=== PATIENT | female | born 1990 | race Caucasian/White ===

== ENCOUNTER 2017-10-16 23:52 | Observation (INO) ==
[2017-10-17] MEDS ORDERED: Dexamethasone Inj 20 MG/5 ML Vial IM ONE (00:21)
--- NOTE | 2017-10-17 00:32 | ED ---
HPI General Chief complaint: Allergic Reaction Stated complaint: allergic reaction Time Seen by Provider: 10/17/17 00:18 Source: patient Mode of arrival: ambulatory Limitations: no limitations History of Present Illness HPI narrative: This patient presents complaining with an allergic reaction. Onset was yesterday. She was seen at an outside facility for this yesterday and was treated with IV Benadryl, IV Pepcid, IV steroids and discharged on oral Benadryl, Pepcid, Zyrtec and prednisone. She has been taking his medications as prescribed. However, her symptoms are getting worse rather than better. In addition, the patient is complaining with some substernal chest pain. Onset was yesterday while she was at the outside hospital after they pushed medications IV. The chest pain has persisted. MD complaint: allergic reaction Onset (ago): day(s) (1) Exposure: unknown Symptoms: rash and itching Severity: mild Treatment prior to arrival: benadryl and steroids Related Data Home Medications Medication Instructions Recorded Confirmed cetirizine [Zyrtec] 10 mg PO DAILY 10/17/17 10/17/17 diphenhydramine HCl [Benadryl] 300 mg PO DAILY 10/17/17 10/17/17 metformin 500 mg PO DAILY 10/17/17 10/17/17 prednisone 20 mg PO DAILY 10/17/17 10/17/17 Allergies Allergy/AdvReac Type Severity Reaction Status Date / Time medroxyprogesterone Allergy Hypertensio Verified 10/16/17 23:57 [From Depo-Provera] n Review of Systems Except as stated in HPI: all other systems reviewed are negative Cardiovascular Reports chest pain [facility] Medical History Medical History Hypertension (Acute) Polycystic ovarian syndrome (Acute) Spleen enlarged (Acute) Surgical History Surgical History No history of previous surgery (Acute) Social History Social History Substance History: Past History Smoking Status: Light tobacco smoker Tobacco Type: Cigarettes How Often Do You Have a Drink Containing Alcohol: 2 to 4 times a month Recent Travel in [facility] within the Last 8 Weeks: No Recent Out of Country Travel within the Last 8 Weeks: No Immunization History Tetanus Immunization: >5 Years Hx Influenza Vaccine This Season: No Exam Const General: cooperative, healthy appearing and comfortable Nutritional Appearance: obese Orientation: alert, awake and oriented x3 HENMT Head: normal to inspection, normocephalic and atraumatic Eyes General: appearance normal, both eyes and all related structures Conjunctivae: conjunctivae normal Sclera: sclerae normal Pupils: PERRL EOM: EOM intact bilaterally Neck Neck: full ROM and supple Chest Chest: normal inspection of the chest Resp Effort & Inspection: normal respiratory effort and able to speak in complete sentences Cardio Rate: regular rate Rhythm: regular rhythm Skin General: turgor normal Rashes: rashes noted (Irregular, red rash with central clearing on her flank areas, both upper extremities and her feet) Neuro General: alert, awake, oriented x3, moves all extremities and CN's II-XI intact bilaterally Extrem General: normal to inspection and full ROM Psych Appearance: grossly normal Mental Status: mental status grossly normal Speech and Movement: speech and movement normal Mood: congruent mood Affect: normal affect Attitude: cooperative Thought Process: normal Thought Content: normal Judgment: judgment good Course Reevaluation(s) Reevaluation #1: Patient reports that her chest pain is improved following aspirin. She has not yet had any nitroglycerin. Time: 02:38 Consultations Consultation #1: Dr. Esteban will admit to [facility] for further evaluation. Time: 02:50 Initial Documented Vital Signs Temperature 98.3 F 10/16/17 23:57 Pulse Rate 90 10/16/17 23:57 Respiratory Rate 18 10/16/17 23:57 Blood Pressure 162/90 H 10/16/17 23:57 Pulse Oximetry 99 10/16/17 23:57 Last Documented Vital Signs Temperature 98.3 F 10/17/17 00:22 Pulse Rate 77 10/17/17 01:24 Respiratory Rate 16 10/17/17 01:24 Blood Pressure 142/85 H 10/17/17 01:24 Pulse Oximetry 100 10/17/17 01:24 Medical Decision Making MDM Narrative Medical decision making narrative: This patient presents with a persistent urticarial rash. Started yesterday. She has been treated appropriately prior to presentation. I have queried up-to-date. It really does not have any further recommendations other than what she is already taking. I will try a shot of Vistaril and Decadron. Beyond that, I do not believe that there is anything else for us to offer this patient. She is not having any respiratory distress related to her symptoms. Regarding her chest pain, a routine cardiac evaluation has been done. The initial evaluation is negative. I have discussed disposition with the patient. She is amenable to admission to the chest pain center for further evaluation. Differential Diagnosis Differential Diagnosis: The differential diagnosis of the skin rash includes but is not limited to allergic urticaria, scabies, insect bites, contact dermatitis Differential diagnosis of chest pain includes but is not limited to musculoskeletal pain, pulmonary embolism, acute coronary syndrome, pneumonia, pleurisy Lab Data Lab results reviewed: Yes I reviewed the patient's lab results. Result diagrams: 10/17/17 01:45 10/17/17 01:45 Lab Results 10/17/17 10/17/17 Range/Units 01:45 01:45 CBC w Diff Auto diff final WBC 15.2 H (4.0-11.0) th/mm3 RBC 4.81 (4.00-5.30) mil/mm3 Hgb 14.1 (11.6-15.3) gm/dL Hct 41.2 (35.0-46.0) % MCV 85.6 (80.0-100.0) fL MCH 29.4 (27.0-34.0) pg MCHC 34.3 (32.0-36.0) % RDW 12.9 (11.6-17.2) % Plt Count 336 (150-450) th/mm3 MPV 8.8 (7.0-11.0) fL Neut % (Auto) 84.3 H (16.0-70.0) % Lymph % (Auto) 10.0 (9.0-44.0) % [place] % (Auto) 4.8 (0.0-8.0) % Eos % (Auto) 0.0 (0.0-4.0) % Baso % (Auto) 0.9 (0.0-2.0) % Neut # (Auto) 12.9 H (1.8-7.7) th/mm3 Lymph # (Auto) 1.5 (1.0-4.8) th/mm3 [place] # (Auto) 0.7 (0.0-0.9) th/mm3 Eos # (Auto) 0.0 (0.0-0.4) th/mm3 Baso # (Auto) 0.1 (0.0-0.2) th/mm3 WBC Differential . Differential Comment . Sodium 139 (136-145) meq/L Potassium 3.9 (3.5-5.1) meq/L Chloride 110 H (98-107) meq/L Carbon Dioxide 22.4 (21.0-32.0) meq/L Anion Gap 7 (5-15) meq/L BUN 16 (7-18) mg/dL Creatinine 1.00 (0.50-1.00) mg/dL Estimated GFR 66 L (>89) mL/min Random Glucose 101 (74-106) mg/dL Calcium 8.5 (8.5-10.1) mg/dL Troponin I Less than 0.02 L (0.02-0.05) ng/mL Imaging Data Attestation: I personally reviewed and interpreted this imaging study as follows : Radiologist's impression: Chest X-Ray 10/17/17 01:24 CONCLUSION: No acute cardiopulmonary disease identified. ECG Data EKG Prior to Arrival: No Attestation: I personally reviewed and interpreted this ECG as follows: (EKG shows a normal sinus rhythm with no acute ischemic changes. Ventricular rate is 92.) Discharge Plan Discharge Disposition Patient Disposition: 30 Still Patient Discharge Details Diagnosis: Urticaria, Chest pain Physicians Team ED Provider: Delphine Ferro Primary Care Provider: Primary Care Mary Quijano Rxs /Orders / Referrals /Forms Prescriptions: No Action metformin 500 mg Tablet 500 mg PO DAILY RF: 0 cetirizine [Zyrtec] 10 mg Tablet 10 mg PO DAILY RF: 0 prednisone 20 mg Tablet 20 mg PO DAILY RF: 0 diphenhydramine HCl [Benadryl] 25 mg Capsule 300 mg PO DAILY RF: 0 Status ED Status: With Doctor
[2017-10-17 01:53] LABS: Baso # (Auto) 0.1 th/mm3 (0.0-0.2); Baso % (Auto) 0.9 % (0.0-2.0); Hematocrit 41.2 % (35.0-46.0); Hemoglobin 14.1 gm/dL (11.6-15.3); Lymph # (Auto) 1.5 th/mm3 (1.0-4.8); Mean Corpuscular HGB Conc 34.3 % (32.0-36.0); Mean Corpuscular Hemoglobin 29.4 pg (27.0-34.0); Mean Corpuscular Volume 85.6 fL (80.0-100.0); Mean Platelet Volume 8.8 fL (7.0-11.0); Mono # (Auto) 0.7 th/mm3 (0.0-0.9); Mono % (Auto) 4.8 % (0.0-8.0); Neut # (Auto) 12.9 th/mm3 (1.8-7.7); Neut % (Auto) 84.3 % (16.0-70.0); Platelet Count 336 th/mm3 (150-450); Red Blood Count 4.81 mil/mm3 (4.00-5.30); Red Cell Distribution Width 12.9 % (11.6-17.2); White Blood Count 15.2 th/mm3 (4.0-11.0)
[2017-10-17 02:00] LABS: Chloride 110 meq/L (98-107); Potassium 3.9 meq/L (3.5-5.1); Sodium 139 meq/L (136-145)
[2017-10-17 02:02] LABS: Calcium 8.5 mg/dL (8.5-10.1)
[2017-10-17 02:03] LABS: Anion Gap 7 meq/L (5-15); Blood Urea Nitrogen 16 mg/dL (7-18); Carbon Dioxide 22.4 meq/L (21.0-32.0); Glucose,Random 101 mg/dL (74-106)
[2017-10-17 02:06] LABS: Glomerular Filtration Rate 66 mL/min (>89)
--- NOTE | 2017-10-17 02:06 | XR ---
EXAM DATE: 10/17/2017 2:03 AM EDT AGE/SEX: 26 years / Female INDICATIONS: Chest pain. CLINICAL DATA: This is the patient's initial encounter. Patient reports that signs and symptoms have been present for 1 day and indicates a pain score of 6/10. MEDICAL/SURGICAL HISTORY: Hypertension. PCOS None. COMPARISON: No prior exams available for comparison. FINDINGS: 2 AP views of the chest. The lungs are clear. Cardiomediastinal silhouette within normal l imits. No evidence of pleural effusion or pneumothorax. CONCLUSION: No acute cardiopulmonary disease identified. Electronically signed by: Pascual Alfonso MD 10/17/2017 2:05 AM EDT
[2017-10-17] MEDS ORDERED: predniSONE 20 MG Tablet PO SCH (09:00)
[2017-10-17 09:01] LABS: Creatine Kinase 43 U/L (26-192)
--- NOTE | 2017-10-17 09:03 | P.HP ---
History of Present Illness Primary Care Physician: No Primary Care Physician Chief Complaint: Chest pain History of Present Illness: 26-year-old female with known history of hypertension, polycystic ovary disease, tobacco use, family history of early onset heart disease who presented to the emergency department for evaluation of urticaria. Patient indicates that she went to hospital in [place] on Wednesday and was treated for urticaria, hives with steroids, Benadryl, Pepcid. She indicates that while she was here in the hospital while they were giving her IV medication she developed a pain in her chest which is located in the epigastric region that spread under her rib cage bilaterally. She has some mild nausea, shortness of breath. Patient denied any radiation to the neck, back, shoulder, arm. Denied any diaphoresis. Patient was discharged home with oral medication, she indicates that her hives/urticaria did not improve so she came to [facility] last evening to get reevaluated. Patient was given IV Vistaril and Decadron and she started developing the same chest discomfort that she had the last time. However this time the discomfort went up into her neck. She ranks it an 8/10 on a pain scale. She was given aspirin in the emergency department and is recommended by the ER physician that the patient be observed in the hospital with chest pain center. Patient states that the pain remained until she got up to the floor and it resolved on its own. Patient has not had any recurrence. Patient states that she does have a history of hypertension which she is no longer on any medication. She states that she lost approximate 60 pounds and was taken off medication by her primary medical doctor. She does have a family history of early onset heart disease with her father with him having his first heart attack at age 38. Currently the patient is asymptomatic. Patient denies any previous cardiac workup. - Diagnosis (1) Urticaria (2) Chest pain Review of Systems All other systems reviewed negative except as stated in HPI Cardiovascular: Reports chest pain Gastrointestinal: Reports nausea Skin/Breast: Reports itching PMFSH - History History Provided By: Patient - Medical History Medical History: Medical History (Last Reviewed 10/17/17 @ 08:45 by FRANCISCA Redmond) Hypertension Polycystic ovarian syndrome Spleen enlarged - Surgical History Surgical History: Surgical History (Last Reviewed 10/17/17 @ 08:45 by FRANCISCA Redmond) No history of previous surgery - Family History Family History: Family History (Last Updated 10/17/17 @ 08:48 by FRANCISCA Redmond) Mother Family history of oral cancer Brother Family history of ankylosing spondylitis Sister Family history of brain tumor Father Family history of myocardial infarction Family history of pulmonary embolism - Tobacco History Second Hand Smoke Exposure: Yes Tobacco Use In Past 30 Days: Yes Smoking Status: Light tobacco smoker Tobacco Type: Cigarettes - Alcohol History How Often Do You Have a Drink Containing Alcohol: Monthly or less - Substance Use History Substance History: Past History - Travel History Recent Travel in the [place] Within the Last 8 Weeks: No Recent Travel Out of the Country Within the Last 8 Weeks: No - Immunization History Tetanus Immunization: >5 Years Hx Influenza Vaccine This Season: No Medications and Allergies Active Medications: Active Medications Cetirizine HCl (Zyrtec) 10 mg PO DAILY KELLY Diphenhydramine HCl (Benadryl) 25 mg PO Q6H KELLY Nitroglycerin (Nitrostat Sl) 0.4 mg SL Q5M PRN PRN Reason: CHEST PAIN Prednisone (Deltasone) 20 mg PO DAILY KELLY Sodium Chloride (Ns Flush) 2 ml IV.FLUSH UNSCH PRN PRN Reason: FLUSH AFTER USING IV ACCESS Allergies Allergy/AdvReac Type Severity Reaction Status Date / Time medroxyprogesterone Allergy Hypertensio Verified 10/16/17 23:57 [From Depo-Provera] n Home Medications Medication Instructions Recorded Confirmed Type cetirizine [Zyrtec] 10 mg PO DAILY 10/17/17 10/17/17 History diphenhydramine HCl [Benadryl] 300 mg PO DAILY 10/17/17 10/17/17 History metformin 500 mg PO DAILY 10/17/17 10/17/17 History prednisone 20 mg PO DAILY 10/17/17 10/17/17 History Exam Vital signs: Vital Signs 10/16/17 23:57 10/17/17 00:22 10/17/17 01:24 Temperature 98.3 F 98.3 F Pulse Rate 90 90 77 Respiratory Rate 18 18 16 Blood Pressure 162/90 H 162/90 H 142/85 H Pulse Oximetry 99 99 100 10/17/17 02:54 10/17/17 04:00 10/17/17 04:10 Temperature 97.4 F L Pulse Rate 85 80 Respiratory Rate 16 20 Blood Pressure 141/75 H 136/84 Pulse Oximetry 96 96 10/17/17 07:41 Temperature Pulse Rate Respiratory Rate Blood Pressure Pulse Oximetry 97 Intake & Output 10/16/17 10/17/17 10/17/17 18:59 06:59 18:59 Weight 133.2 kg Other: Weight On Admission 133.1 kg Narrative: GENERAL: Well-developed, obese with BMI 48.9, in no acute distress. alert and orientated HEENT: Head is normocephalic without any lesions or masses noted. Facial features are symmetric. Eyes: Pupils equal round reactive to light. Extraocular muscles are intact. Conjunctivae were clear. Oropharyngeal: Pharynx without any erythema edema. Tongue is midline without deviation. Buccal mucosa is moist without any masses or lesions NECK: Supple without any masses. Trachea midline no deviation. No JVD, no bruits are appreciated CARDIAC: Regular rhythm, regular rate. S1/S2 are heard. No murmurs gallops or rubs. LUNGS: Clear to auscultation bilaterally. No wheeze, rhonchi or rales. No use of accessory muscles on inspiration or expiration. ABDOMEN: Soft, nontender. Nondistended. Bowel sounds heard in all 4 quadrants. No organomegaly or masses. Negative rebound, negative guarding EXTREMITIES: No edema, pulses are equal bilaterally. No cyanosis or clubbing NEUROLOGY: Mood and affect appear appropriate. Cranial nerves II through XII grossly intact. Muscle strength 5/5 in upper and lower extremities bilaterally. Deep tendon reflexes are 2+ in upper and lower extremities bilaterally. Results - Labs CBC & Chem 7: 10/17/17 01:45 10/17/17 01:45 Labs: Laboratory Results - last 24 hr 10/17/17 10/17/17 10/17/17 01:45 01:45 04:35 CBC w Diff Auto diff final WBC 15.2 H RBC 4.81 Hgb 14.1 Hct 41.2 MCV 85.6 MCH 29.4 MCHC 34.3 RDW 12.9 Plt Count 336 MPV 8.8 Neut % (Auto) 84.3 H Lymph % (Auto) 10.0 [place] % (Auto) 4.8 Eos % (Auto) 0.0 Baso % (Auto) 0.9 Neut # (Auto) 12.9 H Lymph # (Auto) 1.5 [place] # (Auto) 0.7 Eos # (Auto) 0.0 Baso # (Auto) 0.1 WBC Differential . Differential Comment . Sodium 139 Potassium 3.9 Chloride 110 H Carbon Dioxide 22.4 Anion Gap 7 BUN 16 Creatinine 1.00 Estimated GFR 66 L Random Glucose 101 Calcium 8.5 Troponin I Less than 0.02 L Less than 0.02 L - Imaging Impressions Chest X-Ray 10/17/17 01:24 CONCLUSION: No acute cardiopulmonary disease identified. Caprini VTE Risk Assessment Caprini VTE Risk Assessment: No/Low Risk (score <= 1) Caprini Risk Assessment Model: Point Value = 1 Point Value = 2 Point Value = 3 Point Value = 5 Age 41-60 Minor surgery BMI > 25 kg/m2 Swollen legs Varicose veins or History of unexplained or recurrent spontaneous Oral contraceptives or hormone replacement Sepsis (< 1 month) Serious lung disease, including pneumonia (< 1 month) Abnormal pulmonary function Acute myocardial infarction Congestive heart failure (< 1 month) History of inflammatory bowel disease Medical patient at bed rest Age 61-74 Arthroscopic surgery Major open surgery (> 45 min) Laparoscopic surgery (> 45 min) Malignancy Confined to bed (> 72 hours) Immobilizing plaster cast Central venous access Age >= 75 History of VTE Family history of VTE Factor V Leiden Prothrombin [id number] Lupus anticoagulant Anticardiolipin antibodies Elevated serum homocysteine Heparin-induced thrombocytopenia Other congenital or acquired thrombophilia Stroke (< 1 month) Elective arthroplasty Hip, pelvis, or leg fracture Acute spinal cord injury (< 1 month) Prophylaxis Regimen: Total Risk Factor Score Risk Level Prophylaxis Regimen 0-1 Low Early ambulation 2 Moderate Order ONE of the following: *Sequential Compression Device (SCD) *Heparin 5000 units SQ BID 3-4 Higher Order ONE of the following medications: *Heparin 5000 units SQ TID *Enoxaparin/Lovenox 40 mg SQ daily (WT < 150 kg, CrCl > 30 mL/min) *Enoxaparin/Lovenox 30 mg SQ daily (WT < 150 kg, CrCl > 10-29 mL/min) *Enoxaparin/Lovenox 30 mg SQ BID (WT < 150 kg, CrCl > 30 mL/min) AND/OR *Sequential Compression Device (SCD) 5 or more Highest Order ONE of the following medications: *Heparin 5000 units SQ TID (Preferred with Epidurals) *Enoxaparin/Lovenox 40 mg SQ daily (WT < 150 kg, CrCl > 30 mL/min) *Enoxaparin/Lovenox 30 mg SQ daily (WT < 150 kg, CrCl > 10-29 mL/min) *Enoxaparin/Lovenox 30 mg SQ BID (WT < 150 kg, CrCl > 30 mL/min) AND *Sequential Compression Device (SCD) Assessment and Plan - Assessment (1) Urticaria Code(s): L50.9 - Urticaria, unspecified Status: Acute (2) Chest pain Code(s): R07.9 - Chest pain, unspecified Status: Acute - Plan Chest pain, atypical -Patient with increased risk factors include body habitus with BMI 48.9, history of hypertension, tobacco use, early onset heart disease in the family -Patient has been ruled out for acute coronary event with serial cardiac enzymes that are negative -Serial EKGs were reviewed which does show normal sinus rhythm without any changes -Exercise stress test was performed was normal without any signs of ischemia -Patient continued on aspirin -Telemetry was reviewed without any abnormality Urticaria -Patient was given Decadron, Vistaril IV in the emergency department -Patient to continue home medications to include prednisone, Benadryl, Zyrtec, Pepcid DVT prevention -Low risk, early ambulation Discharge Planning: Discharge home in stable condition Activity: Ad darlene. Diet: Healthy heart diet Medication per medication reconciliation Follow-up with primary medical doctor in 1 week (2) Chest pain Qualifiers: Chest pain type: unspecified Qualified Code(s): R07.9 - Chest pain, unspecified
[2017-10-17] MEDS ORDERED: Famotidine 20 MG Tablet PO SCH (10:00)
[2017-10-17 10:36] VITALS: RESP 18; O2SAT 96
[2017-10-17 12:56] VITALS: BP 138/74; PULSE 83; TEMP 97.6
--- NOTE | 2017-10-17 15:15 | ECG ---
Date Performed: 10/17/2017 Time Performed: 00:10:45 PTAGE: 26 years EKG: Sinus rhythm NORMAL ECG NO PREVIOUS TRACING DOCTOR: Олег Bran Interpretating Date/Time 10/17/2017 15:14:09
--- NOTE | 2017-10-17 15:15 | ECG ---
Date Performed: 10/17/2017 Time Performed: 04:12:33 PTAGE: 26 years EKG: Sinus rhythm WITH SINUS ARRHYTHMIA NORMAL ECG PREVIOUS TRACING : 10/17/2017 00.10 Since previous tracing, no significant change noted DOCTOR: Олег Bran Interpretating Date/Time 10/17/2017 15:14:29
--- NOTE | 2017-10-17 15:15 | ECG ---
Date Performed: 10/17/2017 Time Performed: 07:35:50 PTAGE: 26 years EKG: Sinus rhythm NORMAL ECG NO PREVIOUS TRACING DOCTOR: Олег Bran Interpretating Date/Time 10/17/2017 15:13:31
== END 2017-10-17 13:30 | disposition home or self-care (01) ==
LOC: PHED 23:52 → PHEDA 23:52 → PH3 23:52
PROVIDERS: ADMIT Family Medicine; ATTEND Family Medicine